=== PATIENT | male | born 1990 | race Caucasian/White ===

== ENCOUNTER 2017-11-04 11:47 | Emergency (ER) | payer SELFPAY ==
[~2017-11-04] VITALS: Ht 180.3 cm; Wt 74.8 kg
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
--- NOTE | 2017-11-04 11:51 | NUR ---
C-spine cleared by ER . Collar removed. Patient able to move all extremities.
[2017-11-04] MEDS ORDERED: IBUPROFEN 600 MG TABLET PO ONE ×2 (12:00→12:01)
--- NOTE | 2017-11-04 12:12 | NUR ---
PATIENT TRANSPORTED FOR XRAY
--- NOTE | 2017-11-04 12:42 | NUR ---
Patient discharged to home in stable condition. Written and verbal after care instructions given. Patient verbalizes understanding of instruction.
[2017-11-04 12:43] VITALS: BP 135/92
== END 2017-11-04 12:45 | disposition home or self-care (01) ==
LOC: ER 11:48
DX: M54.2 Cervicalgia (principal); V49.49XA Driver injured in collision with other motor vehicles in traffic accident, initial encounter; Y93.89 Activity, other specified; Y92.480 Sidewalk as the place of occurrence of the external cause; Y99.8 Other external cause status
CPT/HCPCS: 72040-TC; A4606; Z7610